=== PATIENT | male | born 1940 | race Caucasian/White ===

== ENCOUNTER 2017-04-13 08:33 | Inpatient (IN) | payer MEDICARE, OTHER ==
[2017-04-13 08:36] VITALS: BMI 29.0
[2017-04-13] MEDS ORDERED: Piperacillin/Tazobact 3.375 GM in Sodium Chloride 0.9% 100 ML IVPB STA (10:32)
--- NOTE | 2017-04-13 10:37 | ED PDOC ---
HPI: General Adult Time Seen by Provider: 04/13/17 09:22 Chief Complaint (Nursing): Fever History Per: Patient History/Exam Limitations: no limitations Onset/Duration Of Symptoms: Gradual (1 month) Current Symptoms Are (Timing): Still Present Severity: Moderate Recently: Hospitalized (d/c two weeks ago) Additional History Per: Patient, Family Additional Complaint(s): Adán brought in by ambulance for intermittent fever x 1 month and dry cough x 2 days. 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 pt states worsening weakness and cough today. seen by dr boland two days ago with similar. Past Medical History Reviewed: Historical Data Vital Signs: Last Vital Signs Temp 101.1 F H 04/13/17 08:36 Pulse 109 H 04/13/17 08:36 Resp 20 04/13/17 08:36 BP 135/64 04/13/17 08:36 Pulse Ox 96 04/13/17 10:38 - Medical History PMH: HTN, Hypercholesterolemia, Pneumonia, Chronic Kidney Disease, Sleep Apnea - Surgical History Surgical History: Appendectomy (as child), Cholecystectomy - Family History Family History: States: Unknown Family Hx - Living Arrangements Living Arrangements: With Family - Social History Current smoker - smoking cessation education provided: No - Home Medications Home Medications: Ambulatory Orders Medication Instructions Recorded Ascorbic Acid [Vitamin C] 1,000 mg PO DAILY 04/13/17 Atorvastatin [Lipitor] 10 mg PO QPM 04/13/17 Benzonatate [Tessalon Perle] 100 mg PO Q8H PRN 04/13/17 Bisoprolol [Zebeta] 2.5 mg PO DAILY 04/13/17 Cephalexin [Keflex] 500 mg PO DAILY 04/13/17 Cholecalciferol [Vitamin D 1000 IU] 1,000 unit PO DAILY 04/13/17 Fenofibrate [Tricor] 145 mg PO QPM 04/13/17 Montelukast [Singulair] 10 mg PO HS 04/13/17 Multivitamin/Iron/Folic Acid 1 tab PO DAILY 04/13/17 [Centrum Complete Multivit Tab] Promethazine HCl/Codeine 5 ml PO Q8H PRN 04/13/17 [Prometh-Codein 6.25-10 mg/5 ml] Tamsulosin [Flomax] 0.4 mg PO Q12H 04/13/17 - Allergies Allergies/Adverse Reactions: Allergies Allergy/AdvReac Type Severity Reaction Status Date / Time cefepime Allergy URTICARIA Verified 04/13/17 09:01 daptomycin Allergy URTICARIA Verified 04/13/17 09:01 doxycycline Allergy URTICARIA Verified 04/13/17 09:01 linezolid [From Zyvox] Allergy URTICARIA Verified 04/13/17 09:01 vancomycin Allergy URTICARIA Verified 04/13/17 09:01 Review of Systems ROS Statement: Except As Marked, All Systems Reviewed And Found Negative Constitutional: Positive for: Fever. Negative for: Chills Cardiovascular: Negative for: Chest Pain, Palpitations Respiratory: Positive for: Cough. Negative for: Shortness of Breath, Sputum Gastrointestinal: Negative for: Nausea, Vomiting, Abdominal Pain, Diarrhea Genitourinary Male: Negative for: Dysuria Skin: Negative for: Rash Physical Exam - Reviewed Nursing Documentation Reviewed: Yes Vital Signs Reviewed: Yes - Physical Exam Appears: Positive for: Uncomfortable Head Exam: Positive for: ATRAUMATIC, NORMAL INSPECTION, NORMOCEPHALIC Skin: Negative for: Rash Eye Exam: Positive for: Normal appearance, EOMI, PERRL Neck: Positive for: Normal, Painless ROM, Supple Cardiovascular/Chest: Positive for: Regular Rate, Rhythm, Chest Non Tender. Negative for: Edema, Gallop, Murmur, Bradycardia, Tachycardia Respiratory: Positive for: Normal Breath Sounds. Negative for: Decreased Breath Sounds, Accessory Muscle Use, Crackles, Rhonchi, Stridor, Wheezing Pulses-Dorsalis Pedis (L): 2+ Pulses-Dorsalis Pedis (R): 2+ Pulses-Post. Tibialis (L): 2+ Pulses-Post. Tibialis (R): 2+ Pulses-Radial (L): 2+ Pulses-Radial (R): 2+ Gastrointestinal/Abdominal: Positive for: Normal Exam, Bowel Sounds, Soft. Negative for: Tenderness Back: Positive for: Normal Inspection. Negative for: L CVA Tenderness, R CVA Tenderness Extremity: Positive for: Normal ROM, Other (scarring and swelling to right leg nvi, mod swelling, foot nvi). Negative for: Tenderness, Pedal Edema, Calf Tenderness, Deformity, Swelling Neurologic/Psych: Positive for: Alert, senior environmental technician II-XII, Oriented. Negative for: Motor/Sensory Deficits - Laboratory Results Result Diagrams: 04/13/17 10:30 04/13/17 10:30 - ECG O2 Sat by Pulse Oximetry: 96 Pulse Ox Interpretation: Normal - Radiology X-Ray: Interpreted by Me X-Ray Interpretation: Infiltrates (rml nml cardiac and mediastinum silhouette) - Progress Re-evaluation Time: 11:00 Condition: Improved Disposition - Clinical Impression Clinical Impression: Fever of unknown origin, Pneumonia - Patient ED Disposition Is Patient to be Admitted: Yes Counseled Patient/Family Regarding: Studies Performed, Diagnosis - Disposition Disposition Time: 11:00 Condition: STABLE Forms: [employer] (Icelandic) - Pt Status Changed To: Hospital Disposition Of: Inpatient - Admit Certification Admit to Inpatient:: After my assessment, the patient will require hospitalization for at least two midnights. This is because of the severity of symptoms shown, intensity of services needed, and/or the medical risk in this patient being treated as an outpatient. - POA Present On Arrival: None, Surgical Site Infection (possible known osteosarcoma)
[2017-04-13] MEDS ORDERED: levoFLOXacin 750 mg in D5W 750 MG/150 ML BAG IVPB SCH (10:45)
--- NOTE | 2017-04-13 10:57 | RAD ---
PROCEDURE: CHEST RADIOGRAPH, 1 VIEW HISTORY: fever COMPARISON: 01/25/2014 FINDINGS: LUNGS: Clear. PLEURA: No pneumothorax or pleural fluid seen. CARDIOVASCULAR: No radiographic findings to suggest acute or significant cardiovascular disease. OSSEOUS STRUCTURES: No significant abnormalities. VISUALIZED UPPER ABDOMEN: Normal. OTHER FINDINGS: None. IMPRESSION: No active disease. No acute/significant interval changes.
[2017-04-13 11:00] LABS: VENOUS BLOOD GAS BASE EXCESS 3.6 mmol/L (0.0-2.0); VENOUS BLOOD GAS PCO2 43 mmHg (40-60); VENOUS BLOOD GAS PO2 22 mm/Hg (30-55); VENOUS BLOOD PH 7.43 (7.32-7.43)
[2017-04-13 11:00] LABS: BASO # 0.1 K/uL (0.0-0.2); BASO % 0.7 % (0.0-2.0); EOS % 0.5 % (0.0-4.0); HEMOGLOBIN 10.5 g/dL (12.0-18.0); LYMPH # 0.4 K/uL (1.0-4.3); MEAN CELL VOLUME 84.9 fl (80.0-94.0); MEAN CORPUSCULAR HEMOGLOBIN 28.5 pg (27.0-31.0); MEAN CORPUSCULAR HGB CONC 33.6 g/dL (33.0-37.0); MEAN PLATELET VOLUME 7.1 fl (7.2-11.7); MONO # 0.7 K/uL (0.0-0.8); MONO % 8.4 % (0.0-10.0); NEUT # 7.3 K/uL (1.8-7.0); NEUT % 85.4 % (50.0-75.0); NRBC % 0.1 % (0.0-0.0); PLATELET COUNT 332 K/uL (130-400); RBC 3.67 Mil/uL (4.40-5.90); RED CELL DISTRIBUTION WIDTH 16.3 % (11.5-14.5); WHITE BLOOD COUNT 8.5 K/uL (4.8-10.8)
[2017-04-13 11:12] LABS: SQUAMOUS EPITHIAL 1 /hpf (0-5); URINE BACTERIA RARE (<OCC); URINE BILIRUBIN NEGATIVE (NEGATIVE); URINE BLOOD NEGATIVE (NEGATIVE); URINE CALCIUM OXALATE CRYSTALS MANY /hpf (<OCC); URINE CLARITY CLOUDY (Clear); URINE COLOR AMBER (YELLOW); URINE GLUCOSE (UA) NEG (Normal); URINE LEUKOCYTE ESTERASE NEG Leu/uL (Negative); URINE NITRATE NEGATIVE (NEGATIVE); URINE PROTEIN 30 mg/dL (NEGATIVE)
[2017-04-13 11:16] LABS: ALB/GLOB RATIO 0.9 (1.0-2.1); ALBUMIN 3.8 g/dL (3.5-5.0); ALT/SGPT 28 U/L (21-72); AST/SGOT 48 U/L (17-59); BLOOD UREA NITROGEN 10 mg/dl (9-20); CALCIUM 9.5 mg/dL (8.4-10.2); GFR AFRICAN-AMERICAN > 60; GFR NON-AFRICAN AMERICAN > 60
[2017-04-13 11:22] LABS: INR 1.4 (0.9-1.2); PARTIAL THROMBOPLASTIN TIME 30.6 Seconds (25.6-37.1)
[2017-04-13 11:28] LABS: B-TYPE NATRIURETIC PEPTIDE 105 pg/ml (0-900)
[2017-04-13 11:38] LABS: ANISOCYTOSIS SLIGHT; BANDS 1 % (0-2); HYPOCHROMIC SLIGHT; LYMPHOCYTE 3 % (20-50); MONOCYTE 6 % (0-10); NEUTROPHIL 90 % (42-75); PLATELET ESTIMATE NORMAL (NORMAL); TOTAL CELLS COUNTED 100
[2017-04-13 11:41] LABS: LARGE PLATELETS PRESENT; TOXIC GRANULATION PRESENT
[2017-04-13] MEDS ORDERED: PROMETHAZINE HCL PO PRN (12:59)
[2017-04-13] MEDS ORDERED: CODEINE PO PRN (12:59)
[2017-04-13] MEDS ORDERED: levoFLOXacin 750 mg in D5W 750 MG/150 ML BAG IVPB ONE (13:53)
[2017-04-13] MEDS: Promethazine/Cod 6.25mg-10mg/5ml Syr UD PO PRN (20:09)
[2017-04-14] MEDS: Promethazine/Cod 6.25mg-10mg/5ml Syr UD PO PRN ×2 (04:17→12:26)
[2017-04-14 07:03] LABS: BASO % 0.8 % (0.0-2.0); EOS % 0.9 % (0.0-4.0); LYMPH % 20.8 % (20.0-40.0); MEAN CELL VOLUME 85.4 fl (80.0-94.0); MEAN CORPUSCULAR HEMOGLOBIN 28.6 pg (27.0-31.0); MEAN CORPUSCULAR HGB CONC 33.5 g/dL (33.0-37.0); MEAN PLATELET VOLUME 6.9 fl (7.2-11.7); MONO % 21.1 % (0.0-10.0); NEUT # 2.7 K/uL (1.8-7.0); NEUT % 56.4 % (50.0-75.0); PLATELET COUNT 276 K/uL (130-400); WHITE BLOOD COUNT 4.8 K/uL (4.8-10.8)
[2017-04-14 07:37] LABS: ALB/GLOB RATIO 0.9 (1.0-2.1); ALBUMIN 3.4 g/dL (3.5-5.0); ALT/SGPT 33 U/L (21-72); AST/SGOT 41 U/L (17-59); BLOOD UREA NITROGEN 12 mg/dl (9-20); CALCIUM 9.3 mg/dL (8.4-10.2); GFR AFRICAN-AMERICAN > 60; GFR NON-AFRICAN AMERICAN > 60
[2017-04-14 08:01] VITALS: RESP 20
[2017-04-14] MEDS: Multivitamin With Minerals Tab PO SCH (08:30)
[2017-04-14] MEDS: Cholecalciferol 1,000 INTLU TAB PO SCH (08:31)
[2017-04-14] MEDS: levoFLOXacin 750 mg in D5W 750 MG/150 ML BAG IVPB SCH (09:00)
[2017-04-14] MEDS ORDERED: levoFLOXacin 750 mg in D5W 150 ML BAG IVPB SCH (09:00)
--- NOTE | 2017-04-14 09:29 | CP.PCM.HP ---
History of Present Illness - History of Present Illness History of Present Illness: pt admitted for clinical pna and fever. pt has had cough/congestion, fever x over 1 month. has been evaled at [facility] and [facility]. at present w/ cough and fever. bw noted. final cxr report no pna. pt has osteosarcoma and onc ortho is at [facility]. Present on Admission - Present on Admission Any Indicators Present on Admission: No Review of Systems - Constitutional Constitutional: As Per HPI, Fever - Respiratory Respiratory: As Per HPI, Cough, Chest Congestion, Excessive Mucous Production Past Patient History - Past Medical History & Family History Past Medical History?: Yes - Past Social History Smoking Status: Never Smoked - CARDIAC Hx Hypercholesterolemia: Yes Hx Hypertension: Yes - PULMONARY Hx Respiratory Disorders: Yes Hx Pneumonia: Yes Hx Sleep Apnea: Yes - NEUROLOGICAL Hx Neurological Disorder: No - HEENT Hx HEENT Problems: No - RENAL Hx Chronic Kidney Disease: Yes - ENDOCRINE/METABOLIC Hx Endocrine Disorders: No - HEMATOLOGICAL/ONCOLOGICAL Hx Blood Disorders: Yes Hx Cancer: Yes (bone cancer right hip) - INTEGUMENTARY Hx Dermatological Problems: No - MUSCULOSKELETAL/RHEUMATOLOGICAL Hx Musculoskeletal Disorders: Yes Hx Falls: No Other/Comment: MRSA infection right big toe nail 04/06/16. right hip tumor, carcinoma - GASTROINTESTINAL Hx Gastrointestinal Disorders: No - GENITOURINARY/GYNECOLOGICAL Hx Genitourinary Disorders: Yes Hx Bladder Stone: Yes Hx Prostate Problems: Yes - PSYCHIATRIC Hx Psychophysiologic Disorder: No Hx Substance Use: No - SURGICAL HISTORY Hx Appendectomy: Yes (as child) Hx Cholecystectomy: Yes Hx Herniorrhaphy: Yes Other/Comment: rotator cuff repair - ANESTHESIA Hx Anesthesia: Yes Hx Anesthesia Reactions: No Hx Malignant Hyperthermia: No Has any member of the family had a problem w/ anesthesia?: No Meds Allergies/Adverse Reactions: Allergies Allergy/AdvReac Type Severity Reaction Status Date / Time cefepime Allergy URTICARIA Verified 04/13/17 09:01 daptomycin Allergy URTICARIA Verified 04/13/17 09:01 doxycycline Allergy URTICARIA Verified 04/13/17 09:01 linezolid [From Zyvox] Allergy URTICARIA Verified 04/13/17 09:01 vancomycin Allergy URTICARIA Verified 04/13/17 09:01 Physical Exam - Constitutional Appears: Well, Non-toxic, No Acute Distress - Head Exam Head Exam: ATRAUMATIC, NORMAL INSPECTION, NORMOCEPHALIC - Eye Exam Eye Exam: EOMI, Normal appearance, PERRL Pupil Exam: NORMAL ACCOMODATION, PERRL - ENT Exam ENT Exam: Mucous Membranes Moist, Normal Exam - Neck Exam Neck exam: Positive for: Normal Inspection - Respiratory Exam Respiratory Exam: Clear to Auscultation Bilateral, NORMAL BREATHING PATTERN - Cardiovascular Exam Cardiovascular Exam: REGULAR RHYTHM, RRR, +S1, +S2 - GI/Abdominal Exam GI & Abdominal Exam: Normal Bowel Sounds, Soft. absent: Tenderness - Extremities Exam Extremities exam: Positive for: full ROM, normal capillary refill, normal inspection, pedal pulses present - Back Exam Back exam: NORMAL INSPECTION - Neurological Exam Neurological exam: Alert, CN II-XII Intact, Normal Gait, Oriented x3, Reflexes Normal - Psychiatric Exam Psychiatric exam: Normal Affect, Normal Mood - Skin Skin Exam: Dry, Intact, Normal Color, Warm Results - Vital Signs Recent Vital Signs: Last Vital Signs Temp 99.5 F 04/14/17 07:59 Pulse 87 04/14/17 07:59 Resp 20 04/14/17 07:59 BP 147/65 04/14/17 07:59 Pulse Ox 98 04/14/17 07:59 - Labs Result Diagrams: 04/14/17 06:10 04/14/17 06:10 Labs: Laboratory Results - last 24 hr 04/13/17 04/13/17 04/13/17 10:15 10:26 10:30 WBC RBC Hgb Hct MCV MCH MCHC RDW Plt Count MPV Neut % (Auto) Lymph % (Auto) [place] % (Auto) Eos % (Auto) Baso % (Auto) Neut # Lymph # [place] # Eos # Baso # Neut # (Auto) Lymph # (Auto) [place] # (Auto) Eos # (Auto) Baso # (Auto) Neutrophils % (Manual) Band Neutrophils % Lymphocytes % (Manual) Monocytes % (Manual) Toxic Granulation Platelet Estimate Large Platelets Hypochromasia (manual) Anisocytosis (manual) PT INR APTT pO2 VBG pH VBG pCO2 VBG HCO3 VBG Total CO2 VBG O2 Sat (Calc) VBG Base Excess VBG Potassium Glucose Lactate FiO2 Sodium 140 Potassium 4.3 Chloride 102 Carbon Dioxide 29 Anion Gap 13 BUN 10 Creatinine 0.6 L Est GFR ( Amer) > 60 Est GFR (Non-Af Amer) > 60 Random Glucose 109 Calcium 9.5 Magnesium 2.0 Total Bilirubin 1.0 AST 48 ALT 28 Alkaline Phosphatase 99 Troponin I 0.0160 NT-Pro-B Natriuret Pep 105 Total Protein 7.8 Albumin 3.8 Globulin 4.1 H Albumin/Globulin Ratio 0.9 L Venous Blood Potassium Urine Color Madie Urine Clarity Cloudy Urine pH 6.0 Ur Specific [place] 1.023 Urine Protein 30 Urine Glucose (UA) Neg Urine Ketones Negative Urine Blood Negative Urine Nitrate Negative Urine Bilirubin Negative Urine Urobilinogen 2.0 Ur Leukocyte Esterase Neg Urine RBC (Auto) 140 H Urine Microscopic WBC 11 H Ur Squamous Epith Cells 1 Calcium Oxalate Crystal Many H Urine Bacteria Rare Influenza Typ A,B (EIA) Negative for flu a/b 04/13/17 04/13/17 04/13/17 10:30 10:30 10:47 WBC 8.5 RBC 3.67 L Hgb 10.5 L Hct 31.2 L MCV 84.9 MCH 28.5 MCHC 33.6 RDW 16.3 H Plt Count 332 MPV 7.1 L Neut % (Auto) 85.4 H Lymph % (Auto) 5.0 L [place] % (Auto) 8.4 Eos % (Auto) 0.5 Baso % (Auto) 0.7 Neut # 7.3 H Lymph # 0.4 L [place] # 0.7 Eos # 0.0 Baso # 0.1 Neut # (Auto) Lymph # (Auto) [place] # (Auto) Eos # (Auto) Baso # (Auto) Neutrophils % (Manual) 90 H Band Neutrophils % 1 Lymphocytes % (Manual) 3 L Monocytes % (Manual) 6 Toxic Granulation Present Platelet Estimate Normal Large Platelets Present Hypochromasia (manual) Slight Anisocytosis (manual) Slight PT 16.0 H INR 1.4 H APTT 30.6 pO2 22 L VBG pH 7.43 VBG pCO2 43 VBG HCO3 26.1 VBG Total CO2 29.8 H VBG O2 Sat (Calc) 45.2 VBG Base Excess 3.6 H VBG Potassium 4.3 Glucose 99 Lactate 1.1 FiO2 21.0 Sodium 137.0 Potassium Chloride 102.0 Carbon Dioxide Anion Gap BUN Creatinine Est GFR ( Amer) Est GFR (Non-Af Amer) Random Glucose Calcium Magnesium Total Bilirubin AST ALT Alkaline Phosphatase Troponin I NT-Pro-B Natriuret Pep Total Protein Albumin Globulin Albumin/Globulin Ratio Venous Blood Potassium 4.3 Urine Color Urine Clarity Urine pH Ur Specific [place] Urine Protein Urine Glucose (UA) Urine Ketones Urine Blood Urine Nitrate Urine Bilirubin Urine Urobilinogen Ur Leukocyte Esterase Urine RBC (Auto) Urine Microscopic WBC Ur Squamous Epith Cells Calcium Oxalate Crystal Urine Bacteria Influenza Typ A,B (EIA) 04/14/17 04/14/17 06:10 06:10 WBC 4.8 RBC 3.50 L Hgb 10.0 L Hct 29.9 L MCV 85.4 MCH 28.6 MCHC 33.5 RDW 16.0 H Plt Count 276 MPV 6.9 L Neut % (Auto) 56.4 Lymph % (Auto) 20.8 [place] % (Auto) 21.1 H Eos % (Auto) 0.9 Baso % (Auto) 0.8 Neut # Lymph # [place] # Eos # Baso # Neut # (Auto) 2.7 Lymph # (Auto) 1.0 [place] # (Auto) 1.0 H Eos # (Auto) 0.0 Baso # (Auto) 0.0 Neutrophils % (Manual) Band Neutrophils % Lymphocytes % (Manual) Monocytes % (Manual) Toxic Granulation Platelet Estimate Large Platelets Hypochromasia (manual) Anisocytosis (manual) PT INR APTT pO2 VBG pH VBG pCO2 VBG HCO3 VBG Total CO2 VBG O2 Sat (Calc) VBG Base Excess VBG Potassium Glucose Lactate FiO2 Sodium 140 Potassium 4.1 Chloride 102 Carbon Dioxide 28 Anion Gap 14 BUN 12 Creatinine 0.7 L Est GFR ( Amer) > 60 Est GFR (Non-Af Amer) > 60 Random Glucose 103 Calcium 9.3 Magnesium Total Bilirubin 0.8 AST 41 ALT 33 Alkaline Phosphatase 82 Troponin I NT-Pro-B Natriuret Pep Total Protein 7.4 Albumin 3.4 L Globulin 4.0 H Albumin/Globulin Ratio 0.9 L Venous Blood Potassium Urine Color Urine Clarity Urine pH Ur Specific [place] Urine Protein Urine Glucose (UA) Urine Ketones Urine Blood Urine Nitrate Urine Bilirubin Urine Urobilinogen Ur Leukocyte Esterase Urine RBC (Auto) Urine Microscopic WBC Ur Squamous Epith Cells Calcium Oxalate Crystal Urine Bacteria Influenza Typ A,B (EIA) Assessment & Plan (1) DVT prophylaxis Assessment and Plan: scd and ae hose hold anticoag for now, will monitor Status: Acute (2) Fever of unknown origin Assessment and Plan: levaquin started. tylenol/motrin ivf f/u labs. pt for xfer to [facility] per family request Status: Acute (3) Osteosarcoma of femur Assessment and Plan: xfer to [facility] Status: Acute Decision To Admit - Pt Status Changed To: Hospital Disposition Of: Inpatient - Admit Certification Admit to Inpatient:: After my assessment, the patient will require hospitalization for at least two midnights. This is because of the severity of symptoms shown, intensity of services needed, and/or the medical risk in this patient being treated as an outpatient. - . Bed Request Type: Med/Surg Admitting Physician: Nate Diego
[2017-04-14] MEDS: guaiFENesin 600 mg ER Tab PO SCH ×2 (10:00→21:35)
[2017-04-14 10:46] LABS: EOSINOPHIL 1 % (0-7); LYMPHOCYTE 14 % (20-50); MONOCYTE 20 % (0-10); MYELOCYTE 1 % (0-0); NEUTROPHIL 62 % (42-75); REACTIVE LYMPHOCYTES 2 % (0-0); TOTAL CELLS COUNTED 100
[2017-04-14 10:47] LABS: ANISOCYTOSIS SLIGHT; HYPOCHROMIC SLIGHT; LARGE PLATELETS PRESENT; PLATELET ESTIMATE NORMAL (NORMAL)
--- NOTE | 2017-04-14 13:52 | CP.PCM.CON ---
History of Present Illness - History of Present Illness History of Present Illness: PAtinet brought in by ambulance for intermittent fever x 1 month and dry cough x 2 days. 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 pt states worsening weakness and cough today. seen by dr boland two days ago with similar. 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 - Medical History PMH: HTN, Hypercholesterolemia, Pneumonia, Chronic Kidney Disease, Sleep Apnea Review of Systems - Constitutional Constitutional: As Per HPI - EENT Eyes: absent: As Per HPI, Blind Spots, Blurred Vision, Change in Vision, Decreased Night Vision, Diplopia, Discharge, Dry Eye, Exophthalmos, Floaters, Irritation, Itchy Eyes, Loss of Peripheral Vision, Pain, Photophobia, Requires Corrective Lenses, Sees Flashes, Spots in Vision, Tunnel Vision, Other Visual Disturbances, Loss of Vision, Other Ears: absent: As Per HPI, Decreased Hearing, Ear Discharge, Ear Pain, Tinnitus, Abnormal Hearing, Disequilibrium, Dizziness, Other Nose/Mouth/Throat: absent: As Per HPI, Epistaxis, Nasal Congestion, Nasal Discharge, Nasal Obstruction, Nasal Trauma, Nose Pain, Post Nasal Drip, Sinus Pain, Sinus Pressure, Bleeding Gums, Change in Voice, Dental Pain, Dry Mouth, Dysphagia, Halitosis, Hoarsness, Lip Swelling, Mouth Lesions, Mouth Pain, Odynophagia, Sore Throat, Throat Swelling, Tongue Swelling, Facial Pain, Neck Pain, Neck Mass, Other - Cardiovascular Cardiovascular: As Per HPI - Respiratory Respiratory: As Per HPI, Cough, Dyspnea. absent: Hemoptysis - Gastrointestinal Gastrointestinal: absent: As Per HPI, Abdominal Pain, Belching, Bloating, Change in Bowel Habits, Change in Stool Character, Coffee Ground Emesis, Constipation, Cramping, Diarrhea, Dyspepsia, Dysphagia, Early Satiety, Excessive Flatus, Fecal Incontinence, Heartburn, Hematemesis, Hematochezia, Loose Stools, Melena, Nausea, Odynophagia, Temesmus, Vomiting, Other - Genitourinary Genitourinary: absent: As Per HPI, Change in Urinary Stream, Difficulty Urinating, Dysuria, Flank Pain, Hematuria, Pyuria, Nocturia, Urinary Incontinence, Urinary Frequency, Urinary Hesitance, Urinary Urgency, Voiding Freq/Small Amts, Freq UTI, Hx Renal/Bladder Calculi, Hx /Renal Surgery, Bladder Distension, Other - Musculoskeletal Musculoskeletal: As Per HPI - Integumentary Integumentary: absent: As Per HPI, Acne, Alopecia, Bleeding Lesions, Change in Hair, Change in Nails, Change in Pigmentation, Changing Lesions, Dry Skin, Erythema, Furuncle, Hirsutism, Lesions, New Lesions, Non-Healing Lesions, Photosensitivity, Pruritus, Rash, Skin Pain, Skin Ulcer, Sores, Striae, Swelling , Unusual Bruising, Wounds, Jaundice, Other - Neurological Neurological: absent: As Per HPI, Abnormal Gait, Abnormal Hearing, Abnormal Movements, Abnormal Speech, Behavioral Changes, Burning Sensations, Confusion, Convulsions, Disequilibrium, Dizziness, Numbness, Focal Weakness, Frequent Falls , Headaches, Lack of Coordination, Loss of Vision, Memory Loss, Paresthesias, Radicular Pain, Restless Legs, Sensory Deficit, Syncope, Tingling, Tremor, Vertigo, Weakness, Other Visual Disturbances, Other - Psychiatric Psychiatric: absent: As Per HPI, Abnormal Sleep Pattern, Anhedonia, Anxiety, Auditory Hallucinations, Behavioral Changes, Change in Appetite, Change in Libido, Confusion, Depression, Difficulty Concentrating, Hallucinations, Homicidal Ideation, Hopelessness, Irritability, Memory Loss, Mood Swings, Panic Attacks, Paranoia, Suicidal Ideation, Visual Hallucinations, Tactile Hallucinations, Other - Endocrine Endocrine: absent: As Per HPI, Change in Body Appearance, Change in Libido, Cold Intolorance, Deepening of Voice, Excessive Sweating, Fatigue, Flushing, Heat Intolorance, Increase in Ring/Shoe/Hat Size, Palpitations, Polydipsia, Polyphagia, Polyuria, Other - Hematologic/Lymphatic Hematologic: absent: As Per HPI, Easy Bleeding, Easy Bruising, Lymphadenopathy, Other Past Patient History - Past Medical History & Family History Past Medical History?: Yes - Past Social History Smoking Status: Never Smoked - CARDIAC Hx Hypercholesterolemia: Yes Hx Hypertension: Yes - PULMONARY Hx Respiratory Disorders: Yes Hx Pneumonia: Yes Hx Sleep Apnea: Yes - NEUROLOGICAL Hx Neurological Disorder: No - HEENT Hx HEENT Problems: No - RENAL Hx Chronic Kidney Disease: Yes - ENDOCRINE/METABOLIC Hx Endocrine Disorders: No - HEMATOLOGICAL/ONCOLOGICAL Hx Blood Disorders: Yes Hx Cancer: Yes (bone cancer right hip) - INTEGUMENTARY Hx Dermatological Problems: No - MUSCULOSKELETAL/RHEUMATOLOGICAL Hx Musculoskeletal Disorders: Yes Hx Falls: No Other/Comment: MRSA infection right big toe nail 04/06/16. right hip tumor, carcinoma - GASTROINTESTINAL Hx Gastrointestinal Disorders: No - GENITOURINARY/GYNECOLOGICAL Hx Genitourinary Disorders: Yes Hx Bladder Stone: Yes Hx Prostate Problems: Yes - PSYCHIATRIC Hx Psychophysiologic Disorder: No Hx Substance Use: No - SURGICAL HISTORY Hx Appendectomy: Yes (as child) Hx Cholecystectomy: Yes Hx Herniorrhaphy: Yes Other/Comment: rotator cuff repair - ANESTHESIA Hx Anesthesia: Yes Hx Anesthesia Reactions: No Hx Malignant Hyperthermia: No Has any member of the family had a problem w/ anesthesia?: No Meds Allergies/Adverse Reactions: Allergies Allergy/AdvReac Type Severity Reaction Status Date / Time cefepime Allergy URTICARIA Verified 04/13/17 09:01 daptomycin Allergy URTICARIA Verified 04/13/17 09:01 doxycycline Allergy URTICARIA Verified 04/13/17 09:01 linezolid [From Zyvox] Allergy URTICARIA Verified 04/13/17 09:01 vancomycin Allergy URTICARIA Verified 04/13/17 09:01 - Medications Medications: Current Medications Acetaminophen (Tylenol 325mg Tab) 650 mg PO Q4 PRN PRN Reason: Fever >100.4 F Ascorbic Acid (Vitamin C 500 Mg Tab) 1,000 mg PO DAILY [facility] Atorvastatin Calcium (Lipitor) 10 mg PO QPM [facility] Last Admin: 04/13/17 18:04 Dose: 10 mg Benzonatate (Tessalon Perles) 100 mg PO Q8H PRN PRN Reason: Cough Last Admin: 04/14/17 08:30 Dose: 100 mg Bisoprolol Fumarate (Zebeta) 2.5 mg PO DAILY [facility] Last Admin: 04/14/17 08:30 Dose: 2.5 mg Cholecalciferol (Vitamin D) 1,000 intlu PO DAILY [facility] Last Admin: 04/14/17 08:31 Dose: 1,000 intlu Fenofibrate (Tricor) 145 mg PO QPM [facility] Last Admin: 04/13/17 18:04 Dose: 145 mg Guaifenesin (Mucinex La) 1,200 mg PO Q12 [facility] Last Admin: 04/14/17 10:00 Dose: 1,200 mg Levofloxacin/Dextrose (Levaquin 750mg) 750 mg in 150 mls @ 75 mls/hr IVPB DAILY [facility] Last Admin: 04/14/17 09:00 Dose: 75 mls/hr Sodium Chloride (Sodium Chloride 0.9%) 1,000 mls @ 100 mls/hr IV .Q10H [facility] Stop: 04/15/17 08:46 Ibuprofen (Motrin Tab) 600 mg PO Q6 PRN PRN Reason: Fever >100.4 F Montelukast Sodium (Singulair) 10 mg PO HS [facility] Last Admin: 04/13/17 21:29 Dose: 10 mg Multivitamins/Minerals (Therapeutic-M Tab) 1 tab PO DAILY [facility] Last Admin: 04/14/17 08:30 Dose: 1 tab Promethazine HCl/Codeine (Phenergan/Codeine Oral Syrup) 5 ml PO Q6 PRN PRN Reason: Cough Last Admin: 04/14/17 12:26 Dose: 5 ml Tamsulosin HCl (Flomax) 0.4 mg PO Q12H [facility] Last Admin: 04/14/17 00:29 Dose: 0.4 mg Physical Exam - Constitutional Appears: Non-toxic, Chronically Ill - Head Exam Head Exam: NORMOCEPHALIC - Eye Exam Eye Exam: PERRL. absent: Scleral icterus - ENT Exam ENT Exam: Mucous Membranes Dry, Normal External Ear Exam - Neck Exam Neck exam: Negative for: Lymphadenopathy - Respiratory Exam Respiratory Exam: Decreased Breath Sounds, Prolonged Expiratory Phase, Rhonchi - Cardiovascular Exam Cardiovascular Exam: REGULAR RHYTHM, +S1, +S2 - GI/Abdominal Exam GI & Abdominal Exam: Diminished Bowel Sounds, Soft. absent: Tenderness - Rectal Exam Rectal Exam: Deferred - Exam Exam: NORMAL INSPECTION - Extremities Exam Extremities exam: Positive for: joint swelling, pedal pulses present. Negative for: calf tenderness, normal inspection, pedal edema, tenderness - Back Exam Back exam: absent: CVA tenderness (L), CVA tenderness (R) - Neurological Exam Neurological exam: Alert, CN II-XII Intact, Oriented x3, Reflexes Normal - Psychiatric Exam Psychiatric exam: Normal Mood - Skin Skin Exam: Dry Results - Vital Signs Recent Vital Signs: Last Vital Signs Temp 99.5 F 04/14/17 07:59 Pulse 87 04/14/17 07:59 Resp 20 04/14/17 07:59 BP 147/65 04/14/17 07:59 Pulse Ox 98 04/14/17 07:59 - Labs Result Diagrams: 04/14/17 06:10 04/14/17 06:10 Labs: Laboratory Results - last 24 hr 04/14/17 04/14/17 04/14/17 06:10 06:10 09:55 WBC 4.8 RBC 3.50 L Hgb 10.0 L Hct 29.9 L MCV 85.4 MCH 28.6 MCHC 33.5 RDW 16.0 H Plt Count 276 MPV 6.9 L Neut % (Auto) 56.4 Lymph % (Auto) 20.8 [place] % (Auto) 21.1 H Eos % (Auto) 0.9 Baso % (Auto) 0.8 Neut # (Auto) 2.7 Lymph # (Auto) 1.0 [place] # (Auto) 1.0 H Eos # (Auto) 0.0 Baso # (Auto) 0.0 Neutrophils % (Manual) 62 Lymphocytes % (Manual) 14 L Reactive Lymphs % 2 H Monocytes % (Manual) 20 H Eosinophils % (Manual) 1 Myelocytes % 1 H Platelet Estimate Normal Large Platelets Present Hypochromasia (manual) Slight Anisocytosis (manual) Slight Sodium 140 Potassium 4.1 Chloride 102 Carbon Dioxide 28 Anion Gap 14 BUN 12 Creatinine 0.7 L Est GFR ( Amer) > 60 Est GFR (Non-Af Amer) > 60 Random Glucose 103 Calcium 9.3 Total Bilirubin 0.8 AST 41 ALT 33 Alkaline Phosphatase 82 Total Protein 7.4 Albumin 3.4 L Globulin 4.0 H Albumin/Globulin Ratio 0.9 L Infectious [place] Assay Negative Assessment & Plan (1) Fever of unknown origin Status: Acute (2) Osteosarcoma of femur Status: Acute - Assessment and Plan (Free Text) Assessment: await cultures cont tamiflu plus Levofloxacin consider CT chest, possible transfer to [place]
[2017-04-14] MEDS: Sodium Chloride 0.9% 1,000 ML IV SCH (16:50)
--- NOTE | 2017-04-14 17:43 | US ---
PROCEDURE: Bilateral lower extremity venous duplex Doppler. HISTORY: No lymphedema. COMPARISON: None available. TECHNIQUE: Bilateral common femoral, superficial femoral, popliteal and posterior tibial veins were evaluated. Flow was assessed with color Doppler, compressibility, assessment of phasic flow and augmentation response. FINDINGS: COMMON FEMORAL VEIN: Right CFV: Unremarkable. Left CFV: Unremarkable. SUPERFICIAL FEMORAL VEIN: Right SFV: Unremarkable. Left SFV: Unremarkable. POPLITEAL VEIN: Right Popliteal: Not visualized Left Popliteal: Unremarkable. POSTERIOR TIBIAL VEIN: Right PTV: Not visualized Left PTV: Unremarkable. OTHER FINDINGS: None. IMPRESSION: No evidence of deep venous thrombosis. Limitations of the current examination: Nonvisualization at and below the midportion right superficial femoral vein, the right lower extremity is wrapped in bandages.
[2017-04-14 21:30] LABS: N MENINGITIS ACY/W135 NEGATIVE (NEGATIVE); N MENINGITIS B/ECOLI K1 NEGATIVE (NEGATIVE); STREP PNEUMONIAE NEGATIVE (NEGATIVE); STREPTOCOCCUS B NEGATIVE (NEGATIVE)
[2017-04-15] MEDS: Promethazine/Cod 6.25mg-10mg/5ml Syr UD PO PRN ×2 (03:56→21:33)
[2017-04-15] MEDS: Sodium Chloride 0.9% 1,000 ML IV SCH ×2 (05:38→05:40)
--- NOTE | 2017-04-15 08:24 | CP.PCM.PN ---
Subjective - Date & Time of Evaluation Date of Evaluation: 04/15/17 Time of Evaluation: 08:23 - Subjective Subjective: pt fever trending down. no n/v/d. w/ cough/congestionremainign. bw wnl. id consult apprciaited. pulm consult ordered. family no longer wishes for xfer to [facility] Objective - Vital Signs/Intake and Output Vital Signs (last 24 hours): Temp Pulse Resp BP Pulse Ox 98.9 F 76 20 117/64 98 04/15/17 07:53 04/15/17 07:53 04/15/17 07:53 04/15/17 07:53 04/15/17 07:53 - Medications Medications: Current Medications Acetaminophen (Tylenol 325mg Tab) 650 mg PO Q4 PRN PRN Reason: Fever >100.4 F Ascorbic Acid (Vitamin C 500 Mg Tab) 1,000 mg PO DAILY [facility] Last Admin: 04/14/17 21:36 Dose: 1,000 mg Atorvastatin Calcium (Lipitor) 10 mg PO QPM [facility] Last Admin: 04/14/17 18:11 Dose: 10 mg Benzonatate (Tessalon Perles) 100 mg PO Q8H PRN PRN Reason: Cough Last Admin: 04/14/17 18:11 Dose: 100 mg Bisoprolol Fumarate (Zebeta) 2.5 mg PO DAILY [facility] Last Admin: 04/14/17 08:30 Dose: 2.5 mg Cholecalciferol (Vitamin D) 1,000 intlu PO DAILY [facility] Last Admin: 04/14/17 08:31 Dose: 1,000 intlu Fenofibrate (Tricor) 145 mg PO QPM [facility] Last Admin: 04/14/17 18:12 Dose: 145 mg Guaifenesin (Mucinex La) 1,200 mg PO Q12 [facility] Last Admin: 04/14/17 21:35 Dose: 1,200 mg Levofloxacin/Dextrose (Levaquin 750mg) 750 mg in 150 mls @ 75 mls/hr IVPB DAILY [facility] Last Admin: 04/14/17 09:00 Dose: 75 mls/hr Sodium Chloride (Sodium Chloride 0.9%) 1,000 mls @ 100 mls/hr IV .Q10H [facility] Stop: 04/15/17 08:46 Last Admin: 04/15/17 05:40 Dose: Not Given Ibuprofen (Motrin Tab) 600 mg PO Q6 PRN PRN Reason: Fever >100.4 F Montelukast Sodium (Singulair) 10 mg PO HS [facility] Last Admin: 04/14/17 21:36 Dose: 10 mg Multivitamins/Minerals (Therapeutic-M Tab) 1 tab PO DAILY [facility] Last Admin: 04/14/17 08:30 Dose: 1 tab Promethazine HCl/Codeine (Phenergan/Codeine Oral Syrup) 5 ml PO Q6 PRN PRN Reason: Cough Last Admin: 04/15/17 03:56 Dose: 5 ml Tamsulosin HCl (Flomax) 0.4 mg PO Q12 [facility] - Labs Labs: 04/14/17 06:10 04/14/17 06:10 PT 16.0 Seconds (9.8-13.1) H 04/13/17 10:30 INR 1.4 (0.9-1.2) H 04/13/17 10:30 APTT 30.6 Seconds (25.6-37.1) 04/13/17 10:30 - Constitutional Appears: Well, Non-toxic, No Acute Distress - Head Exam Head Exam: ATRAUMATIC, NORMAL INSPECTION, NORMOCEPHALIC - Eye Exam Eye Exam: EOMI, Normal appearance, PERRL Pupil Exam: NORMAL ACCOMODATION, PERRL - ENT Exam ENT Exam: Mucous Membranes Moist, Normal Exam - Neck Exam Neck Exam: Full ROM, Normal Inspection. absent: Lymphadenopathy - Respiratory Exam Respiratory Exam: Clear to Ausculation Bilateral, NORMAL BREATHING PATTERN - Cardiovascular Exam Cardiovascular Exam: REGULAR RHYTHM, RRR, +S1, +S2. absent: Murmur - GI/Abdominal Exam GI & Abdominal Exam: Soft, Normal Bowel Sounds. absent: Tenderness - Extremities Exam Extremities Exam: Full ROM, Normal Capillary Refill, Normal Inspection. absent : Joint Swelling, Pedal Edema - Back Exam Back Exam: NORMAL INSPECTION - Neurological Exam Neurological Exam: Alert, Awake, CN II-XII Intact, Normal Gait, Oriented x3 - Psychiatric Exam Psychiatric exam: Normal Affect, Normal Mood - Skin Skin Exam: Dry, Intact, Normal Color, Warm Assessment and Plan (1) DVT prophylaxis Status: Acute (2) Fever of unknown origin Status: Acute (3) Osteosarcoma of femur Status: Acute - Assessment and Plan (Free Text) Assessment: (1) DVT prophylaxis Assessment and Plan: scd and ae hose hold anticoag for now, will monitor Status: Acute (2) Fever of unknown origin Assessment and Plan: levaquin started. tylenol/motrin ivf f/u labs. family wishes for care to be rendered at [facility] [place] for now pulm and ID fever trending down, c/s and bw wnl at this time Status: Acute (3) Osteosarcoma of femur Assessment and Plan: heme/onc consult Status: Acute
[2017-04-15] MEDS: Cholecalciferol 1,000 INTLU TAB PO SCH (09:06)
[2017-04-15] MEDS: guaiFENesin 600 mg ER Tab PO SCH ×2 (09:07→20:56)
[2017-04-15] MEDS: Multivitamin With Minerals Tab PO SCH (09:07)
[2017-04-15] MEDS: levoFLOXacin 750 mg in D5W 750 MG/150 ML BAG IVPB SCH (09:08)
[2017-04-15] MEDS ORDERED: Sodium Chloride 3% for Inhalation 4 ML VIAL.NEB IH PRN (09:19)
--- NOTE | 2017-04-15 09:57 | CARD ---
APPROVED REPORT EKG Measurement Heart [id number] CT [id number] <Conclusion> Normal sinus rhythm RBBB Abnormal ECG
--- NOTE | 2017-04-15 10:33 | CON ---
DATE: HISTORY OF PRESENT ILLNESS: Mr. Ng is a 76-year-old male who was referred for Pulmonary evaluation by Benoit Coe, he is admitted with dry cough for 2 days and fever on and off for the past 1 month intermittently, worsened on the day of admission. He indicates that he is unable to expectorate sputum, but when it comes up it is white tinged with no blood. He denies chest pains, but has mild shortness of breath and wheezing. 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 He was seen and treated at [facility]. He also has a history of hypertension, hyperlipidemia, pneumonia and sleep apnea. FAMILY HISTORY: Unrevealing socially. He does not smoke, but drink and lives at home with a and his daughter. REVIEW OF SYSTEMS: Essentially remarkable for dry cough and exercise intolerance. PHYSICAL EXAMINATION: GENERAL: The patient is alert, oriented, and appears to be in mild distress because of wheezing and cough. VITAL SIGNS: Blood pressure of 117/64 with a pulse of 76, and respiratory rate of 20. He is febrile with a temperature of 98.9 degrees Fahrenheit, O2 saturation is 98% on room air. SKIN: Shows fair turgor. HEENT: Pupils are equal and reactive to light and accommodation. Mouth shows fair hygiene. NECK: JVP flat. LUNGS: Fair aeration with audible wheezing and rales. HEART: S1 and S2. GASTROINTESTINAL: Abdomen is soft, nontender, and no organomegaly. EXTREMITIES: Edema of right lower extremity. There is also rash of the left groin area. NEUROLOGIC: Central nervous system exam; the patient is alert, and oriented. He appears to have no gross neurologic deficits. LABORATORY DATA: WBC of 4.8, hemoglobin of 10.0, and platelet count of 76,000. Sodium of 140, potassium of 4.1, BUN of 12, and creatinine of 0.7. Venous blood gas; pH of 7.43, pCO2 of 43, pO2 of 22 and saturation of 45.2. Chest x-ray shows no acute cardiopulmonary pathology. IMPRESSION: The clinical pictures is compatible with pneumonia despite chest x-ray findings. The patient also has bronchospasm which is probably secondary to mucous plugging of the airways, history of sarcoma of the leg status post surgical resection, and history of chronic lymphedema of right lower extremity. PLAN: Bronchodilators and oxygen p.r.n. Would give Mucinex Gram stain and cultures. Continue IV antibiotic therapy. The case was discussed with the patient and the patient's daughter at bedside. We will continue to follow with you. Rodney Sahu MD
[2017-04-15] MEDS: Albuterol-Ipratrop 3 mg / 0.5 (3 ml) UD INH SCH ×3 (11:56→20:03)
--- NOTE | 2017-04-15 12:18 | CP.PCM.CON ---
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 with skin recurrence in 2016 s/p resection and skin graft, chronic infections, admitted with cough and fever, undergoing pneumonia treatment. The patient reports to recurrent infections despite antibiotic prophylaxis which he attributes to his limited mobility from chondrosarcoma surgery. He has been admitted several times in the past for infections. He reports his chondroscarcoma is in remission and he has not required chemotherapy or radiation. 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 Allergies: cefepime, daptomycin, doxycycline, linezolid, vancomycin Review of systems: All remaining review of systems including HEENT, cardiovacular, respiratory, gastrointestinal, genitourinary, musculoskeletal, dermatologic, neurologic, and psychiatric are negative unless mentioned in the HPI. Past Patient History - Past Medical History & Family History Past Medical History?: Yes - Past Social History Smoking Status: Never Smoked - CARDIAC Hx Hypercholesterolemia: Yes Hx Hypertension: Yes - PULMONARY Hx Respiratory Disorders: Yes Hx Pneumonia: Yes Hx Sleep Apnea: Yes - NEUROLOGICAL Hx Neurological Disorder: No - HEENT Hx HEENT Problems: No - RENAL Hx Chronic Kidney Disease: Yes - ENDOCRINE/METABOLIC Hx Endocrine Disorders: No - HEMATOLOGICAL/ONCOLOGICAL Hx Blood Disorders: Yes Hx Cancer: Yes (bone cancer right hip) - INTEGUMENTARY Hx Dermatological Problems: No - MUSCULOSKELETAL/RHEUMATOLOGICAL Hx Musculoskeletal Disorders: Yes Hx Falls: No Other/Comment: MRSA infection right big toe nail 04/06/16. right hip tumor, carcinoma - GASTROINTESTINAL Hx Gastrointestinal Disorders: No - GENITOURINARY/GYNECOLOGICAL Hx Genitourinary Disorders: Yes Hx Bladder Stone: Yes Hx Prostate Problems: Yes - PSYCHIATRIC Hx Psychophysiologic Disorder: No Hx Substance Use: No - SURGICAL HISTORY Hx Appendectomy: Yes (as child) Hx Cholecystectomy: Yes Hx Herniorrhaphy: Yes Other/Comment: rotator cuff repair - ANESTHESIA Hx Anesthesia: Yes Hx Anesthesia Reactions: No Hx Malignant Hyperthermia: No Has any member of the family had a problem w/ anesthesia?: No Meds Allergies/Adverse Reactions: Allergies Allergy/AdvReac Type Severity Reaction Status Date / Time cefepime Allergy URTICARIA Verified 04/13/17 09:01 daptomycin Allergy URTICARIA Verified 04/13/17 09:01 doxycycline Allergy URTICARIA Verified 04/13/17 09:01 linezolid [From Zyvox] Allergy URTICARIA Verified 04/13/17 09:01 vancomycin Allergy URTICARIA Verified 04/13/17 09:01 - Medications Medications: Current Medications Acetaminophen (Tylenol 325mg Tab) 650 mg PO Q4 PRN PRN Reason: Fever >100.4 F Acetylcysteine (Acetylcysteine 20%) 2 ml INH RBID [facility] Albuterol/Ipratropium (Duoneb 3 Mg/0.5 Mg (3 Ml) Ud) 3 ml INH RQID [facility] Ascorbic Acid (Vitamin C 500 Mg Tab) 1,000 mg PO DAILY [facility] Last Admin: 04/15/17 09:07 Dose: 1,000 mg Atorvastatin Calcium (Lipitor) 10 mg PO QPM [facility] Last Admin: 04/14/17 18:11 Dose: 10 mg Benzonatate (Tessalon Perles) 100 mg PO Q8H PRN PRN Reason: Cough Last Admin: 04/15/17 09:06 Dose: 100 mg Bisoprolol Fumarate (Zebeta) 2.5 mg PO DAILY [facility] Last Admin: 04/15/17 09:07 Dose: 2.5 mg Cholecalciferol (Vitamin D) 1,000 intlu PO DAILY [facility] Last Admin: 04/15/17 09:06 Dose: 1,000 intlu Clotrimazole (Lotrimin 1% Cream) 1 applic TOP BID [facility] Last Admin: 04/15/17 12:04 Dose: 1 applic Fenofibrate (Tricor) 145 mg PO QPM [facility] Last Admin: 04/14/17 18:12 Dose: 145 mg Guaifenesin (Mucinex La) 1,200 mg PO Q12 [facility] Last Admin: 04/15/17 09:07 Dose: 1,200 mg Levofloxacin/Dextrose (Levaquin 750mg) 750 mg in 150 mls @ 75 mls/hr IVPB DAILY [facility] Last Admin: 04/15/17 09:08 Dose: 75 mls/hr Ibuprofen (Motrin Tab) 600 mg PO Q6 PRN PRN Reason: Fever >100.4 F Montelukast Sodium (Singulair) 10 mg PO HS [facility] Last Admin: 04/14/17 21:36 Dose: 10 mg Multivitamins/Minerals (Therapeutic-M Tab) 1 tab PO DAILY [facility] Last Admin: 04/15/17 09:07 Dose: 1 tab Promethazine HCl/Codeine (Phenergan/Codeine Oral Syrup) 5 ml PO Q6 PRN PRN Reason: Cough Last Admin: 04/15/17 03:56 Dose: 5 ml Tamsulosin HCl (Flomax) 0.4 mg PO Q12 [facility] Last Admin: 04/15/17 09:07 Dose: 0.4 mg Physical Exam - Head Exam Head Exam: ATRAUMATIC - Eye Exam Eye Exam: Normal appearance - ENT Exam ENT Exam: Mucous Membranes Dry - Respiratory Exam Respiratory Exam: NORMAL BREATHING PATTERN - Cardiovascular Exam Cardiovascular Exam: +S1, +S2 - GI/Abdominal Exam GI & Abdominal Exam: Normal Bowel Sounds - Neurological Exam Neurological exam: Oriented x3 - Psychiatric Exam Psychiatric exam: Normal Affect, Normal Mood - Skin Skin Exam: Warm Results - Vital Signs Recent Vital Signs: Last Vital Signs Temp 98.9 F 04/15/17 07:53 Pulse 76 04/15/17 07:53 Resp 20 04/15/17 07:53 BP 117/64 04/15/17 07:53 Pulse Ox 98 04/15/17 07:53 - Labs Result Diagrams: 04/14/17 06:10 04/14/17 06:10 Labs: Laboratory Results - last 24 hr 04/14/17 04/14/17 04/14/17 14:06 17:10 17:10 Procalcitonin < 0.05 L H.influenzae Type B Ag Negative Ur L.pneumophila Ag Negative N.meningitidis [id number] Negative N.meningi B/E.coli K1 Ag Negative Group B Strep Antigen Negative S. pneumoniae Antigen Negative Assessment & Plan (1) Anemia Assessment and Plan: will check retic count, b12, folate, ferritin to further characterize Status: Acute (2) Chondrosarcoma Assessment and Plan: of the RLE s/p resection recurrence to the skin s/p resection and skin graft outpatient f/u and surveillance with primary oncologic team Thank you for this interesting consult. Status: Acute
--- NOTE | 2017-04-15 17:39 | CT ---
PROCEDURE: CT Chest without contrast HISTORY: Pneumonia. COMPARISON: 04/13/2017. Single-view chest TECHNIQUE: Contiguous axial images were obtained through the chest without intravenous contrast enhancement. Sagittal and coronal reconstructions were performed. Radiation dose (DLP): 774.37 mGy-cm. This CT exam was performed using one or more of the following dose reduction techniques: Automated exposure control, adjustment of the mA and/or kV according to patient size, and/or use of iterative reconstruction technique. FINDINGS: LUNGS: Hyperinflation, manifestations of COPD. No active pulmonary disease. Parabronchial thickening/ manifestations of mild bronchitis. No evidence of mucous plugging. . Visualized airway clear. MEDIASTINUM: Unremarkable thoracic aorta. No aneurysm. Normal sized heart. Main pulmonary artery unremarkable. No vascular congestion. No lymphadenopathy. PLEURA: No pleural fluid. No pneumothorax. BONES: No fracture. No destructive lesion. Non marginal, marginal osteophyte formation identified. UPPER ABDOMEN: Grossly unremarkable. OTHER FINDINGS: None. IMPRESSION: No evidence of pneumonia/infiltrate or mass lesion. Hyperinflation/ manifestations of COPD. Prominent pulmonary markings compatible with lower airways disease, bronchitis. No discrete infiltrates
--- NOTE | 2017-04-15 19:31 | CP.PCM.PN ---
Subjective - Date & Time of Evaluation Date of Evaluation: 04/15/17 Time of Evaluation: 06:00 - Subjective Subjective: afebrile awake alert c/o cough NAD Objective - Vital Signs/Intake and Output Vital Signs (last 24 hours): Temp Pulse Resp BP Pulse Ox 98.1 F 82 20 139/70 96 04/15/17 16:03 04/15/17 16:03 04/15/17 16:03 04/15/17 16:03 04/15/17 16:03 - Medications Medications: Current Medications Acetaminophen (Tylenol 325mg Tab) 650 mg PO Q4 PRN PRN Reason: Fever >100.4 F Acetylcysteine (Acetylcysteine 20%) 2 ml INH RBID [facility] Albuterol/Ipratropium (Duoneb 3 Mg/0.5 Mg (3 Ml) Ud) 3 ml INH RQID [facility] Last Admin: 04/15/17 11:56 Dose: Not Given Ascorbic Acid (Vitamin C 500 Mg Tab) 1,000 mg PO DAILY [facility] Last Admin: 04/15/17 09:07 Dose: 1,000 mg Atorvastatin Calcium (Lipitor) 10 mg PO QPM [facility] Last Admin: 04/15/17 17:02 Dose: 10 mg Benzonatate (Tessalon Perles) 100 mg PO Q8H PRN PRN Reason: Cough Last Admin: 04/15/17 09:06 Dose: 100 mg Bisoprolol Fumarate (Zebeta) 2.5 mg PO DAILY [facility] Last Admin: 04/15/17 09:07 Dose: 2.5 mg Cholecalciferol (Vitamin D) 1,000 intlu PO DAILY [facility] Last Admin: 04/15/17 09:06 Dose: 1,000 intlu Clotrimazole (Lotrimin 1% Cream) 1 applic TOP BID [facility] Last Admin: 04/15/17 17:02 Dose: 1 applic Fenofibrate (Tricor) 145 mg PO QPM [facility] Last Admin: 04/15/17 17:02 Dose: 145 mg Guaifenesin (Mucinex La) 1,200 mg PO Q12 [facility] Last Admin: 04/15/17 09:07 Dose: 1,200 mg Levofloxacin/Dextrose (Levaquin 750mg) 750 mg in 150 mls @ 75 mls/hr IVPB DAILY [facility] Last Admin: 04/15/17 09:08 Dose: 75 mls/hr Ibuprofen (Motrin Tab) 600 mg PO Q6 PRN PRN Reason: Fever >100.4 F Montelukast Sodium (Singulair) 10 mg PO HS [facility] Last Admin: 04/14/17 21:36 Dose: 10 mg Multivitamins/Minerals (Therapeutic-M Tab) 1 tab PO DAILY [facility] Last Admin: 04/15/17 09:07 Dose: 1 tab Promethazine HCl/Codeine (Phenergan/Codeine Oral Syrup) 5 ml PO Q6 PRN PRN Reason: Cough Last Admin: 04/15/17 03:56 Dose: 5 ml Tamsulosin HCl (Flomax) 0.4 mg PO Q12 [facility] Last Admin: 04/15/17 09:07 Dose: 0.4 mg - Labs Labs: 04/14/17 06:10 04/14/17 06:10 PT 16.0 Seconds (9.8-13.1) H 04/13/17 10:30 INR 1.4 (0.9-1.2) H 04/13/17 10:30 APTT 30.6 Seconds (25.6-37.1) 04/13/17 10:30 - Constitutional Appears: Non-toxic, Chronically Ill - Head Exam Head Exam: NORMOCEPHALIC - Eye Exam Eye Exam: PERRL. absent: Scleral icterus - ENT Exam ENT Exam: Mucous Membranes Dry - Neck Exam Neck Exam: absent: Lymphadenopathy - Respiratory Exam Respiratory Exam: Decreased Breath Sounds, Prolonged Expiratory Phase, Rhonchi, Wheezes - Cardiovascular Exam Cardiovascular Exam: REGULAR RHYTHM, +S1, +S2 - GI/Abdominal Exam GI & Abdominal Exam: Distended, Soft. absent: Tenderness - Rectal Exam Rectal Exam: Deferred - Exam Exam: NORMAL INSPECTION - Extremities Exam Extremities Exam: Pedal Edema. absent: Calf Tenderness, Tenderness - Back Exam Back Exam: absent: CVA tenderness (L), CVA tenderness (R) - Neurological Exam Neurological Exam: Alert, Awake, Oriented x3 Neuro motor strength exam: Left Upper Extremity: 3, Right Upper Extremity: 3, Left Lower Extremity: 3, Right Lower Extremity: 3 - Psychiatric Exam Psychiatric exam: Depressed - Skin Skin Exam: Dry Assessment and Plan (1) Fever of unknown origin Status: Acute (2) Osteosarcoma of femur Status: Acute - Assessment and Plan (Free Text) Assessment: pneumonia- likely viral- responding to rx all cultures neg thus far chondrosarcoma s/p remission- local recurrence Dr Zaldivar on board [facility] COPD cont rx as per Dr Sahu
[2017-04-15] MEDS: Acetylcysteine 20% Inhal Soln (4ml) INH SCH (20:03)
[2017-04-16] MEDS: Albuterol-Ipratrop 3 mg / 0.5 (3 ml) UD INH SCH ×3 (07:26→15:17)
[2017-04-16] MEDS: Acetylcysteine 20% Inhal Soln (4ml) INH SCH (07:26)
--- NOTE | 2017-04-16 08:38 | CP.PCM.PN ---
Subjective - Date & Time of Evaluation Date of Evaluation: 04/16/17 Time of Evaluation: 08:37 - Subjective Subjective: pt doing well. less cough. no f/c, n/v/d. c/s negative. ct chest w/ copd and bronchitis. 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 Objective - Vital Signs/Intake and Output Vital Signs (last 24 hours): Temp Pulse Resp BP Pulse Ox 99.0 F 86 20 146/72 96 04/16/17 00:07 04/16/17 00:07 04/16/17 00:07 04/16/17 00:07 04/16/17 00:07 - Medications Medications: Current Medications Acetaminophen (Tylenol 325mg Tab) 650 mg PO Q4 PRN PRN Reason: Fever >100.4 F Acetylcysteine (Acetylcysteine 20%) 2 ml INH RBID [facility] Last Admin: 04/16/17 07:26 Dose: Not Given Albuterol/Ipratropium (Duoneb 3 Mg/0.5 Mg (3 Ml) Ud) 3 ml INH RQID [facility] Last Admin: 04/16/17 07:26 Dose: 3 ml Ascorbic Acid (Vitamin C 500 Mg Tab) 1,000 mg PO DAILY [facility] Last Admin: 04/15/17 09:07 Dose: 1,000 mg Atorvastatin Calcium (Lipitor) 10 mg PO QPM [facility] Last Admin: 04/15/17 17:02 Dose: 10 mg Benzonatate (Tessalon Perles) 100 mg PO Q8H PRN PRN Reason: Cough Last Admin: 04/16/17 00:04 Dose: 100 mg Bisoprolol Fumarate (Zebeta) 2.5 mg PO DAILY [facility] Last Admin: 04/15/17 09:07 Dose: 2.5 mg Cholecalciferol (Vitamin D) 1,000 intlu PO DAILY [facility] Last Admin: 04/15/17 09:06 Dose: 1,000 intlu Clotrimazole (Lotrimin 1% Cream) 1 applic TOP BID [facility] Last Admin: 04/15/17 17:02 Dose: 1 applic Fenofibrate (Tricor) 145 mg PO QPM [facility] Last Admin: 04/15/17 17:02 Dose: 145 mg Guaifenesin (Mucinex La) 1,200 mg PO Q12 [facility] Last Admin: 04/15/17 20:56 Dose: 1,200 mg Levofloxacin/Dextrose (Levaquin 750mg) 750 mg in 150 mls @ 75 mls/hr IVPB DAILY [facility] Last Admin: 04/15/17 09:08 Dose: 75 mls/hr Ibuprofen (Motrin Tab) 600 mg PO Q6 PRN PRN Reason: Fever >100.4 F Montelukast Sodium (Singulair) 10 mg PO HS [facility] Last Admin: 04/15/17 21:01 Dose: 10 mg Multivitamins/Minerals (Therapeutic-M Tab) 1 tab PO DAILY [facility] Last Admin: 04/15/17 09:07 Dose: 1 tab Promethazine HCl/Codeine (Phenergan/Codeine Oral Syrup) 5 ml PO Q6 PRN PRN Reason: Cough Last Admin: 04/15/17 21:33 Dose: 5 ml Tamsulosin HCl (Flomax) 0.4 mg PO Q12 [facility] Last Admin: 04/15/17 20:57 Dose: 0.4 mg - Labs Labs: 04/14/17 06:10 04/14/17 06:10 PT 16.0 Seconds (9.8-13.1) H 04/13/17 10:30 INR 1.4 (0.9-1.2) H 04/13/17 10:30 APTT 30.6 Seconds (25.6-37.1) 04/13/17 10:30 - Constitutional Appears: Well, Non-toxic, No Acute Distress - Head Exam Head Exam: ATRAUMATIC, NORMAL INSPECTION, NORMOCEPHALIC - Eye Exam Eye Exam: EOMI, Normal appearance, PERRL Pupil Exam: NORMAL ACCOMODATION, PERRL - ENT Exam ENT Exam: Mucous Membranes Moist, Normal Exam - Neck Exam Neck Exam: Full ROM, Normal Inspection. absent: Lymphadenopathy - Respiratory Exam Respiratory Exam: Clear to Ausculation Bilateral, NORMAL BREATHING PATTERN - Cardiovascular Exam Cardiovascular Exam: REGULAR RHYTHM, RRR, +S1, +S2. absent: Murmur - GI/Abdominal Exam GI & Abdominal Exam: Soft, Normal Bowel Sounds. absent: Tenderness - Extremities Exam Extremities Exam: Full ROM, Normal Capillary Refill, Normal Inspection. absent : Joint Swelling, Pedal Edema - Back Exam Back Exam: NORMAL INSPECTION - Neurological Exam Neurological Exam: Alert, Awake, CN II-XII Intact, Normal Gait, Oriented x3 - Psychiatric Exam Psychiatric exam: Normal Affect, Normal Mood - Skin Skin Exam: Dry, Intact, Normal Color, Warm Assessment and Plan (1) DVT prophylaxis Status: Acute (2) Fever of unknown origin Status: Acute (3) Osteosarcoma of femur Status: Acute - Assessment and Plan (Free Text) Assessment: (1) DVT prophylaxis Assessment and Plan: scd and ae hose hold anticoag for now, will monitor ivc filter Status: Acute (2) Fever of unknown origin Assessment and Plan: levaquin started. tylenol/motrin ivf f/u labs. family wishes for care to be rendered at [facility] for now pulm and ID fever trending down, c/s and bw wnl at this time Status: Acute (3) Osteosarcoma of femur Assessment and Plan: heme/onc consult Status: Acute
[2017-04-16 08:41] LABS: BASO % 0.4 % (0.0-2.0); EOS # 0.1 K/uL (0.0-0.7); EOS % 1.3 % (0.0-4.0); HEMOGLOBIN 10.3 g/dL (12.0-18.0); MEAN CORPUSCULAR HEMOGLOBIN 28.1 pg (27.0-31.0); MEAN PLATELET VOLUME 6.7 fl (7.2-11.7); MONO # 0.5 K/uL (0.0-0.8); MONO % 10.3 % (0.0-10.0); NEUT # 3.6 K/uL (1.8-7.0); NRBC % 0.1 % (0.0-0.0); RBC 3.68 Mil/uL (4.40-5.90); RED CELL DISTRIBUTION WIDTH 15.9 % (11.5-14.5); WHITE BLOOD COUNT 5.2 K/uL (4.8-10.8)
[2017-04-16] MEDS: Multivitamin With Minerals Tab PO SCH (08:47)
[2017-04-16] MEDS: guaiFENesin 600 mg ER Tab PO SCH (08:47)
[2017-04-16] MEDS: Cholecalciferol 1,000 INTLU TAB PO SCH (08:47)
[2017-04-16] MEDS: levoFLOXacin 750 mg in D5W 750 MG/150 ML BAG IVPB SCH (08:48)
[2017-04-16 09:06] LABS: ALB/GLOB RATIO 0.9 (1.0-2.1); ALBUMIN 3.4 g/dL (3.5-5.0); ALT/SGPT 39 U/L (21-72); AST/SGOT 48 U/L (17-59); BLOOD UREA NITROGEN 11 mg/dl (9-20); CALCIUM 9.4 mg/dL (8.4-10.2); GFR AFRICAN-AMERICAN > 60; GFR NON-AFRICAN AMERICAN > 60
--- NOTE | 2017-04-16 13:38 | CP.PCM.PN ---
Subjective - Date & Time of Evaluation Date of Evaluation: 04/16/17 Time of Evaluation: 13:37 - Subjective Subjective: STILL COUGHING C/O CONSTIPATION SOB LESS NO CHEST PAINS Objective - Vital Signs/Intake and Output Vital Signs (last 24 hours): Temp Pulse Resp BP Pulse Ox 98.3 F 88 20 150/66 97 04/16/17 10:36 04/16/17 10:36 04/16/17 10:36 04/16/17 10:36 04/16/17 10:36 - Medications Medications: Current Medications Acetaminophen (Tylenol 325mg Tab) 650 mg PO Q4 PRN PRN Reason: Fever >100.4 F Acetylcysteine (Acetylcysteine 20%) 2 ml INH RBID [facility] Last Admin: 04/16/17 07:26 Dose: Not Given Albuterol/Ipratropium (Duoneb 3 Mg/0.5 Mg (3 Ml) Ud) 3 ml INH RQID [facility] Last Admin: 04/16/17 11:23 Dose: 3 ml Ascorbic Acid (Vitamin C 500 Mg Tab) 1,000 mg PO DAILY [facility] Last Admin: 04/16/17 08:48 Dose: 1,000 mg Atorvastatin Calcium (Lipitor) 10 mg PO QPM [facility] Last Admin: 04/15/17 17:02 Dose: 10 mg Benzonatate (Tessalon Perles) 100 mg PO Q8H PRN PRN Reason: Cough Last Admin: 04/16/17 08:50 Dose: 100 mg Bisoprolol Fumarate (Zebeta) 2.5 mg PO DAILY [facility] Last Admin: 04/16/17 08:47 Dose: 2.5 mg Cholecalciferol (Vitamin D) 1,000 intlu PO DAILY [facility] Last Admin: 04/16/17 08:47 Dose: 1,000 intlu Clotrimazole (Lotrimin 1% Cream) 1 applic TOP BID [facility] Last Admin: 04/16/17 08:49 Dose: 1 applic Fenofibrate (Tricor) 145 mg PO QPM [facility] Last Admin: 04/15/17 17:02 Dose: 145 mg Guaifenesin (Mucinex La) 1,200 mg PO Q12 [facility] Last Admin: 04/16/17 08:47 Dose: 1,200 mg Levofloxacin/Dextrose (Levaquin 750mg) 750 mg in 150 mls @ 75 mls/hr IVPB DAILY [facility] Last Admin: 04/16/17 08:48 Dose: 75 mls/hr Ibuprofen (Motrin Tab) 600 mg PO Q6 PRN PRN Reason: Fever >100.4 F Montelukast Sodium (Singulair) 10 mg PO HS [facility] Last Admin: 04/15/17 21:01 Dose: 10 mg Multivitamins/Minerals (Therapeutic-M Tab) 1 tab PO DAILY [facility] Last Admin: 04/16/17 08:47 Dose: 1 tab Oseltamivir Phosphate (Tamiflu Cap) 75 mg PO BID [facility] PRN Reason: Protocol Last Admin: 04/16/17 12:34 Dose: 75 mg Promethazine HCl/Codeine (Phenergan/Codeine Oral Syrup) 5 ml PO Q6 PRN PRN Reason: Cough Last Admin: 04/15/17 21:33 Dose: 5 ml Tamsulosin HCl (Flomax) 0.4 mg PO Q12 [facility] Last Admin: 04/16/17 08:47 Dose: 0.4 mg - Labs Labs: 04/16/17 08:05 04/16/17 08:05 PT 16.0 Seconds (9.8-13.1) H 04/13/17 10:30 INR 1.4 (0.9-1.2) H 04/13/17 10:30 APTT 30.6 Seconds (25.6-37.1) 04/13/17 10:30 - Constitutional Appears: No Acute Distress - Head Exam Head Exam: ATRAUMATIC, NORMAL INSPECTION, NORMOCEPHALIC - Eye Exam Eye Exam: EOMI, Normal appearance, PERRL Pupil Exam: NORMAL ACCOMODATION, PERRL - ENT Exam ENT Exam: Mucous Membranes Moist, Normal Exam - Neck Exam Neck Exam: Full ROM, Normal Inspection. absent: Lymphadenopathy - Respiratory Exam Respiratory Exam: Prolonged Expiratory Phase, NORMAL BREATHING PATTERN - Cardiovascular Exam Cardiovascular Exam: REGULAR RHYTHM, +S1, +S2. absent: Murmur - GI/Abdominal Exam GI & Abdominal Exam: Soft, Normal Bowel Sounds. absent: Tenderness - Rectal Exam Rectal Exam: NORMAL INSPECTION - Extremities Exam Extremities Exam: Full ROM, Normal Capillary Refill, Normal Inspection. absent : Joint Swelling, Pedal Edema - Back Exam Back Exam: NORMAL INSPECTION - Neurological Exam Neurological Exam: Alert, Awake, CN II-XII Intact, Normal Gait, Oriented x3 - Psychiatric Exam Psychiatric exam: Normal Affect, Normal Mood - Skin Skin Exam: Dry, Intact, Normal Color, Warm Assessment and Plan - Assessment and Plan (Free Text) Assessment: FEVER-RESOLVED ACUTE BRONCHITIS Plan: OK TO D/C ON PRESENT RX WILL SIGN OFF CASE
--- NOTE | 2017-04-16 14:17 | CP.PCM.PN ---
Subjective - Date & Time of Evaluation Date of Evaluation: 04/16/17 Time of Evaluation: 08:00 - Subjective Subjective: imroving with nebulizers IV and PO rx to continue Objective - Vital Signs/Intake and Output Vital Signs (last 24 hours): Temp Pulse Resp BP Pulse Ox 98.3 F 88 20 150/66 97 04/16/17 10:36 04/16/17 10:36 04/16/17 10:36 04/16/17 10:36 04/16/17 10:36 - Medications Medications: Current Medications Acetaminophen (Tylenol 325mg Tab) 650 mg PO Q4 PRN PRN Reason: Fever >100.4 F Acetylcysteine (Acetylcysteine 20%) 2 ml INH RBID [facility] Last Admin: 04/16/17 07:26 Dose: Not Given Albuterol/Ipratropium (Duoneb 3 Mg/0.5 Mg (3 Ml) Ud) 3 ml INH RQID [facility] Last Admin: 04/16/17 11:23 Dose: 3 ml Ascorbic Acid (Vitamin C 500 Mg Tab) 1,000 mg PO DAILY [facility] Last Admin: 04/16/17 08:48 Dose: 1,000 mg Atorvastatin Calcium (Lipitor) 10 mg PO QPM [facility] Last Admin: 04/15/17 17:02 Dose: 10 mg Benzonatate (Tessalon Perles) 100 mg PO Q8H PRN PRN Reason: Cough Last Admin: 04/16/17 08:50 Dose: 100 mg Bisoprolol Fumarate (Zebeta) 2.5 mg PO DAILY [facility] Last Admin: 04/16/17 08:47 Dose: 2.5 mg Cholecalciferol (Vitamin D) 1,000 intlu PO DAILY [facility] Last Admin: 04/16/17 08:47 Dose: 1,000 intlu Clotrimazole (Lotrimin 1% Cream) 1 applic TOP BID [facility] Last Admin: 04/16/17 08:49 Dose: 1 applic Fenofibrate (Tricor) 145 mg PO QPM [facility] Last Admin: 04/15/17 17:02 Dose: 145 mg Guaifenesin (Mucinex La) 1,200 mg PO Q12 [facility] Last Admin: 04/16/17 08:47 Dose: 1,200 mg Levofloxacin/Dextrose (Levaquin 750mg) 750 mg in 150 mls @ 75 mls/hr IVPB DAILY [facility] Last Admin: 04/16/17 08:48 Dose: 75 mls/hr Ibuprofen (Motrin Tab) 600 mg PO Q6 PRN PRN Reason: Fever >100.4 F Montelukast Sodium (Singulair) 10 mg PO HS [facility] Last Admin: 04/15/17 21:01 Dose: 10 mg Multivitamins/Minerals (Therapeutic-M Tab) 1 tab PO DAILY [facility] Last Admin: 04/16/17 08:47 Dose: 1 tab Oseltamivir Phosphate (Tamiflu Cap) 75 mg PO BID [facility] PRN Reason: Protocol Last Admin: 04/16/17 12:34 Dose: 75 mg Promethazine HCl/Codeine (Phenergan/Codeine Oral Syrup) 5 ml PO Q6 PRN PRN Reason: Cough Last Admin: 04/15/17 21:33 Dose: 5 ml Tamsulosin HCl (Flomax) 0.4 mg PO Q12 [facility] Last Admin: 04/16/17 08:47 Dose: 0.4 mg - Labs Labs: 04/16/17 08:05 04/16/17 08:05 PT 16.0 Seconds (9.8-13.1) H 04/13/17 10:30 INR 1.4 (0.9-1.2) H 04/13/17 10:30 APTT 30.6 Seconds (25.6-37.1) 04/13/17 10:30 - Constitutional Appears: Non-toxic, Chronically Ill - Head Exam Head Exam: NORMOCEPHALIC - Eye Exam Eye Exam: PERRL - ENT Exam ENT Exam: Mucous Membranes Dry - Neck Exam Neck Exam: absent: Lymphadenopathy - Respiratory Exam Respiratory Exam: Decreased Breath Sounds - Cardiovascular Exam Cardiovascular Exam: REGULAR RHYTHM - GI/Abdominal Exam GI & Abdominal Exam: Distended, Soft - Rectal Exam Rectal Exam: Deferred - Exam Exam: NORMAL INSPECTION Assessment and Plan (1) Fever of unknown origin Status: Acute (2) Osteosarcoma of femur Status: Acute
[2017-04-16 16:39] VITALS: BP 131/66; PULSE 81; TEMP 97.7; O2SAT 96
--- NOTE | 2017-04-17 09:00 | CP.PCM.DIS ---
Provider - Provider Date of Admission: 04/13/17 12:30 Attending physician: Nate Diego MD Time Spent in preparation of Discharge (in minutes): 15 Diagnosis - Discharge Diagnosis (1) DVT prophylaxis Status: Acute (2) Fever of unknown origin Status: Acute (3) Osteosarcoma of femur Status: Acute Hospital Course - Lab Results Lab Results: Micro Results 04/13/17 11:00 Blood Blood Culture - Preliminary NO GROWTH AFTER 3 DAYS 04/13/17 10:30 Blood Blood Culture - Preliminary NO GROWTH AFTER 3 DAYS 04/15/17 15:00 Sputum Gram Stain - Final Most Recent Lab Values WBC 5.2 K/uL (4.8-10.8) 04/16/17 08:05 RBC 3.68 Mil/uL (4.40-5.90) L 04/16/17 08:05 Hgb 10.3 g/dL (12.0-18.0) L 04/16/17 08:05 Hct 31.3 % (35.0-51.0) L 04/16/17 08:05 MCV 85.0 fl (80.0-94.0) 04/16/17 08:05 MCH 28.1 pg (27.0-31.0) 04/16/17 08:05 MCHC 33.0 g/dL (33.0-37.0) 04/16/17 08:05 RDW 15.9 % (11.5-14.5) H 04/16/17 08:05 Plt Count 273 K/uL (130-400) 04/16/17 08:05 MPV 6.7 fl (7.2-11.7) L 04/16/17 08:05 Neut % (Auto) 69.0 % (50.0-75.0) 04/16/17 08:05 Lymph % (Auto) 19.0 % (20.0-40.0) L 04/16/17 08:05 Sullivan % (Auto) 10.3 % (0.0-10.0) H 04/16/17 08:05 Eos % (Auto) 1.3 % (0.0-4.0) 04/16/17 08:05 Baso % (Auto) 0.4 % (0.0-2.0) 04/16/17 08:05 Neut # (Auto) 3.6 K/uL (1.8-7.0) 04/16/17 08:05 Lymph # (Auto) 1.0 K/uL (1.0-4.3) 04/16/17 08:05 Sullivan # (Auto) 0.5 K/uL (0.0-0.8) 04/16/17 08:05 Eos # (Auto) 0.1 K/uL (0.0-0.7) 04/16/17 08:05 Baso # (Auto) 0.0 K/uL (0.0-0.2) 04/16/17 08:05 Band Neutrophils % 1 % (0-2) 04/13/17 10:30 Neutrophils % (Manual) 62 % (42-75) 04/14/17 06:10 Lymphocytes % (Manual) 14 % (20-50) L 04/14/17 06:10 Reactive Lymphs % 2 % (0-0) H 04/14/17 06:10 Monocytes % (Manual) 20 % (0-10) H 04/14/17 06:10 Eosinophils % (Manual) 1 % (0-7) 04/14/17 06:10 Myelocytes % 1 % (0-0) H 04/14/17 06:10 Toxic Granulation Present 04/13/17 10:30 Platelet Estimate Normal (NORMAL) 04/14/17 06:10 Large Platelets Present 04/14/17 06:10 Hypochromasia (manual) Slight 04/14/17 06:10 Anisocytosis (manual) Slight 04/14/17 06:10 PT 16.0 Seconds (9.8-13.1) H 04/13/17 10:30 INR 1.4 (0.9-1.2) H 04/13/17 10:30 APTT 30.6 Seconds (25.6-37.1) 04/13/17 10:30 pO2 22 mm/Hg (30-55) L 04/13/17 10:47 VBG pH 7.43 (7.32-7.43) 04/13/17 10:47 VBG pCO2 43 mmHg (40-60) 04/13/17 10:47 VBG HCO3 26.1 mmol/L 04/13/17 10:47 VBG Total CO2 29.8 mmol/L (22-28) H 04/13/17 10:47 VBG O2 Sat (Calc) 45.2 % (40-65) 04/13/17 10:47 VBG Base Excess 3.6 mmol/L (0.0-2.0) H 04/13/17 10:47 VBG Potassium 4.3 mmol/L (3.6-5.2) 04/13/17 10:47 Sodium 137.0 mmol/L (132-148) 04/13/17 10:47 Chloride 102.0 mmol/L (98-107) 04/13/17 10:47 Glucose 99 mg/dL (75-110) 04/13/17 10:47 Lactate 1.1 mmol/L (0.7-2.1) 04/13/17 10:47 FiO2 21.0 % 04/13/17 10:47 Sodium 142 mmol/l (132-148) 04/16/17 08:05 Potassium 4.3 MMOL/L (3.6-5.0) 04/16/17 08:05 Chloride 102 mmol/L (98-107) 04/16/17 08:05 Carbon Dioxide 31 mmol/L (22-30) H 04/16/17 08:05 Anion Gap 13 (10-20) 04/16/17 08:05 BUN 11 mg/dl (9-20) 04/16/17 08:05 Creatinine 0.6 mg/dl (0.8-1.5) L 04/16/17 08:05 Est GFR ( Amer) > 60 04/16/17 08:05 Est GFR (Non-Af Amer) > 60 04/16/17 08:05 Random Glucose 126 mg/dL (75-110) H 04/16/17 08:05 Calcium 9.4 mg/dL (8.4-10.2) 04/16/17 08:05 Magnesium 2.0 MG/DL (1.6-2.3) 04/13/17 10:30 Total Bilirubin 0.5 mg/dl (0.2-1.3) 04/16/17 08:05 AST 48 U/L (17-59) 04/16/17 08:05 ALT 39 U/L (21-72) 04/16/17 08:05 Alkaline Phosphatase 78 U/L (38-126) 04/16/17 08:05 Troponin I 0.0160 ng/mL (0.00-0.120) 04/13/17 10:30 NT-Pro-B Natriuret Pep 105 pg/ml (0-900) 04/13/17 10:30 Total Protein 7.3 G/DL (6.3-8.2) 04/16/17 08:05 Albumin 3.4 g/dL (3.5-5.0) L 04/16/17 08:05 Globulin 3.9 gm/dL (2.2-3.9) 04/16/17 08:05 Albumin/Globulin Ratio 0.9 (1.0-2.1) L 04/16/17 08:05 Procalcitonin < 0.05 NG/ML (0.19-0.49) L 04/14/17 14:06 Venous Blood Potassium 4.3 mmol/L (3.6-5.2) 04/13/17 10:47 Urine Color Madie (YELLOW) 04/13/17 10:26 Urine Clarity Cloudy (Clear) 04/13/17 10:26 Urine pH 6.0 (5.0-8.0) 04/13/17 10:26 Ur Specific [place] 1.023 (1.003-1.030) 04/13/17 10:26 Urine Protein 30 mg/dL (NEGATIVE) 04/13/17 10:26 Urine Glucose (UA) Neg mg/dL (Normal) 04/13/17 10:26 Urine Ketones Negative mg/dL (NEGATIVE) 04/13/17 10:26 Urine Blood Negative (NEGATIVE) 04/13/17 10:26 Urine Nitrate Negative (NEGATIVE) 04/13/17 10:26 Urine Bilirubin Negative (NEGATIVE) 04/13/17 10:26 Urine Urobilinogen 2.0 mg/dL (0.2-1.0) 04/13/17 10:26 Ur Leukocyte Esterase Neg Velma/uL (Negative) 04/13/17 10:26 Urine RBC (Auto) 140 /hpf (0-3) H 04/13/17 10:26 Urine Microscopic WBC 11 /hpf (0-5) H 04/13/17 10:26 Ur Squamous Epith Cells 1 /hpf (0-5) 04/13/17 10:26 Calcium Oxalate Crystal Many /hpf (<OCC) H 04/13/17 10:26 Urine Bacteria Rare (<OCC) 04/13/17 10:26 Influenza Typ A,B (EIA) Negative for flu a/b (NEGATIVE) 04/13/17 10:15 Infectious Sullivan Assay Negative (NEGATIVE) 04/14/17 09:55 H.influenzae Type B Ag Negative (NEGATIVE) 04/14/17 17:10 Ur L.pneumophila Ag Negative (NEGATIVE) 04/14/17 17:10 N.meningitidis ACY/W135 Negative (NEGATIVE) 04/14/17 17:10 N.meningi B/E.coli K1 Ag Negative (NEGATIVE) 04/14/17 17:10 Group B Strep Antigen Negative (NEGATIVE) 04/14/17 17:10 S. pneumoniae Antigen Negative (NEGATIVE) 04/14/17 17:10 - Hospital Course Hospital Course: anbx, id and pulm consult duoneb, mucinex Discharge Exam - Head Exam Head Exam: NORMOCEPHALIC Discharge Plan - Discharge Medications Prescriptions: Albuterol/Ipratropium [Duoneb 3 mg/0.5 mg (3 ml) UD] 3 ml INH RQID #100 neb Ascorbic Acid [Vitamin C 500 mg Tab] 1,000 mg PO DAILY #30 tab Benzonatate [Tessalon Perle] 100 mg PO Q8H PRN #30 capsule PRN Reason: Cough Clotrimazole 1% Cream [Lotrimin 1% CREAM] 1 applic TOP BID #1 tube levoFLOXacin [Levaquin] 500 mg PO DAILY #7 tab Oseltamivir [Tamiflu Cap] 75 mg PO BID #9 cap - Follow Up Plan Condition: STABLE Disposition: HOME/ ROUTINE Instructions: Pneumonia (DC) Additional Instructions: follow up with Dr Diego on wednesday04/19/17 at 10am. final dx-copd exacerbation, bronchitis doing well overall, cleared for dc. rted prn Referrals: Stanley Zaldivar MD [Staff Provider] - Nate Diego MD [Family Provider] - Nik Russell MD [Staff Provider] - Rodney Sahu MD [Staff Provider] -
== END 2017-04-16 18:10 | disposition home or self-care (01) | DRG 190 ==
LOC: H.ER 08:33 → H.ERHOLD 12:30 → H.MEDSURG1 16:15
PROVIDERS: ADMIT Family Medicine; ATTEND Family Medicine
DX: J44.0 Chronic obstructive pulmonary disease with (acute) lower respiratory infection (principal); J12.9 Viral pneumonia, unspecified; C40.22 Malignant neoplasm of long bones of left lower limb; J44.1 Chronic obstructive pulmonary disease with (acute) exacerbation; J20.9 Acute bronchitis, unspecified; G47.33 Obstructive sleep apnea (adult) (pediatric); I12.9 Hypertensive chronic kidney disease with stage 1 through stage 4 chronic kidney disease, or unspecified chronic kidney disease; N18.9 Chronic kidney disease, unspecified; D64.9 Anemia, unspecified; E78.5 Hyperlipidemia, unspecified; E78.00 Pure hypercholesterolemia, unspecified; K59.00 Constipation, unspecified; Z86.14 Personal history of Methicillin resistant Staphylococcus aureus infection; Z87.01 Personal history of pneumonia (recurrent); Z88.1 Allergy status to other antibiotic agents; Z88.8 Allergy status to other drugs, medicaments and biological substances